=== PATIENT | male | born 1985 | race American Indian/Alaskan Native ===

== ENCOUNTER 2017-04-02 13:22 | Emergency (ER) | payer OTHER ==
[2017-04-02 13:33] VITALS: BP 150/86
--- NOTE | 2017-04-02 14:41 | XRay Report ---
LEFT FOOT: History: Pain after trauma. The bony architecture is intact. Bony alignment is normal. No soft tissue abnormalities are seen. The joint spaces appear preserved. IMPRESSION: Normal left foot.
[2017-04-02] MEDS ORDERED: MOTRIN PO ONE (15:12)
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
== END 2017-04-02 15:54 | disposition home or self-care (01) ==
LOC: ED 13:22
DX: M79.672 Pain in left foot (principal)